=== PATIENT | female | born 1970 | race American Indian/Alaskan Native ===

== ENCOUNTER 2023-02-22 18:18 | Emergency (ER) | payer MEDICAID, OTHER ==
[2023-02-22] MEDS ORDERED: Amoxicillin/Clavulanate K 875-125 MG Tab PO ONE (19:54)
[2023-02-22 20:04] LABS: CORONAVIRUS COVID-19 NAA NEGATIVE (NEGATIVE); INFLUENZA A NAA NEGATIVE (NEGATIVE); INFLUENZA B NAA NEGATIVE (NEGATIVE)
== END 2023-02-22 20:12 | disposition home or self-care (01) ==
LOC: MW.ED 18:18
DX: J01.00 Acute maxillary sinusitis, unspecified (principal); Z20.822 Contact with and (suspected) exposure to COVID-19
CPT/HCPCS: 0240U; 87651; 99283; A9270; 99282